=== PATIENT | female | born 1990 ===

== ENCOUNTER 2016-12-07 14:47 | Outpatient (CLI) | payer OTHER ==
[2016-12-07 16:18] VITALS: BP 132/83; PULSE 85; RESP 18; TEMP 98.1
== END 2016-12-07 15:50 | disposition home or self-care (01) ==
LOC: FBPOP 14:47 → MERGE 14:47 → FBPOP 15:50
PROVIDERS: ATTEND Obstetrics & Gynecology
DX: O26.893 Other specified pregnancy related conditions, third trimester (principal); R10.30 Lower abdominal pain, unspecified; Z3A.39 39 weeks gestation of pregnancy
CPT/HCPCS: 59025; 99213

== ENCOUNTER 2016-12-09 04:31 | Inpatient (IN) | payer OTHER ==
[2016-12-09] MEDS ORDERED: METHYLERGONOVINE 0.2 MG/ML 1 ML AMP IM PRN (04:49)
[2016-12-09] MEDS ORDERED: CARBOPROST TROMETHAMINE 250 MCG/ML 1 ML AMP IM PRN (04:49)
[2016-12-09] MEDS ORDERED: OXYTOCIN 10 UNIT/ML 1 ML VIAL IM PRN (04:49)
[2016-12-09] MEDS ORDERED: LIDOCAINE 1% (PF) 10 MG/ML (30 ML SDV) SQ PRN (04:49)
[2016-12-09] MEDS ORDERED: TERBUTALINE 1 MG/ML VIAL SQ PRN (04:49)
[2016-12-09] MEDS: LACTATED RINGERS 1,000 ML IV SCH ×2 (04:56→14:43)
[2016-12-09] MEDS ORDERED: LACTATED RINGERS 1,000 ML IV SCH (05:00)
[2016-12-09 05:05] LABS: Basophils % (A) 0 %; CH 29.3; CHCM 33.5; Eosinophils # (A) 0.2 k/uL (0-0.7); Eosinophils % (A) 2 %; HCT 32.5 % (34.0-46.0); HDW 3.21; HGB 10.8 gm/dL (11.4-16.0); Luc # (Auto) 0.13; Luc % (Auto) 2; Lymphocytes # (A) 2.2 k/uL (1.0-4.8); Lymphocytes % (A) 26 %; MCH 29.1 pg (25.0-35.0); MCHC 33.1 g/dL (31.0-37.0); MCV 87.8 fL (80.0-100.0); Mean Platelet Volume 9.9; Monocytes # (A) 0.5 k/uL (0-1.0); Monocytes % (A) 6 %; Neutrophils # (A) 5.3 k/uL (1.3-7.7); Neutrophils % (A) 64 %; RDW 12.9 % (11.5-15.5); WBC 8.4 k/uL (3.8-10.6); WBC (Perox) 8.71
--- NOTE | 2016-12-09 05:18 | P.HPOB ---
History of Present Illness H&P Date: 12/09/16 Chief Complaint: Labor at 39+ weeks gestation This is a 26-year-old 3 para 2002 woman who presents at 39-3/7 weeks gestation in spontaneous active labor with rupture of membranes. Her is complicated by language barrier. Patient speaks minimal Moroccan. She is accompanied by her who does speak Moroccan although he is not in the room with her. He reports she had spontaneous rupture of membranes prior to presentation of labor and delivery triage. She is complaining of contractions every 2 minutes for several hours. On initial evaluation in labor and delivery triage she is 6 cm dilated and rupture of membranes is confirmed. She is a 3 para 2 with a history of 2 previous uncomplicated vaginal deliveries. Details are not available on the record. Laboratory data reveals blood type B positive, antibody screen negative, rubella immune, VDRL nonreactive, hepatitis B surface antigen negative, group B strep negative, glucose tolerance testing within normal limits. Review of Systems All systems: negative Past Medical History Past Medical History: No Reported History Additional Past Medical History / Comment(s): 2 History of Any Multi-Drug Resistant Organisms: None Reported Past Surgical History: No Surgical Hx Reported Past Psychological History: No Psychological Hx Reported Smoking Status: Never smoker Medications and Allergies Home Medications Medication Instructions Recorded Confirmed Type No Known Home Medications [No 12/09/16 12/09/16 History Known Home Medications] Allergies Allergy/AdvReac Type Severity Reaction Status Date / Time No Known Allergies Allergy Verified 12/09/16 04:49 Exam - Vital Signs Vital signs: Intake and Output 12/08/16 12/08/16 12/09/16 14:59 22:59 06:59 Other: Weight 77.111 kg Patient Weight 12/09/16 06:59 Weight 77.111 kg Per the labor and message and delivery service pricer: Patient is 6 cm dilated, 90% effaced vertex in 0 station. Artificial rupture of membranes is confirmed. heart tones are reassuring by external monitoring she is uri every 1-2 minutes. Results Result Diagrams: 12/09/16 04:50 Abnormal Lab Results - Last 24 Hours (Table) 12/09/16 Range/Units 04:50 RBC 3.70 L (3.80-5.40) m/uL Hgb 10.8 L (11.4-16.0) gm/dL Hct 32.5 L (34.0-46.0) % Assessment and Plan (1) 39 weeks gestation of Status: Acute (2) Spontaneous onset of labor Status: Acute (3) Spontaneous rupture of membranes Status: Acute (4) Language barrier to communication Status: Acute Plan: This is a 26-year-old 3 para 2002 woman at 39+ weeks in advanced active labor. Her is translating for her. He reports she declines analgesia or epidural. She is group B strep negative and Rh+. status is currently reassuring by external monitoring. I anticipate normal spontaneous vaginal delivery.
[2016-12-09] MEDS ORDERED: SIMETHICONE 80 MG CHEWABLE PO PRN (06:27)
[2016-12-09] MEDS ORDERED: ZOLPIDEM 5 MG TAB PO PRN (06:27)
[2016-12-09] MEDS ORDERED: diphenhydrAMINE 50 MG CAP PO PRN (06:27)
[2016-12-09] MEDS ORDERED: diphenhydrAMINE 50 MG/ML 1 ML VIAL IVP PRN ×2 (06:27)
[2016-12-09] MEDS ORDERED: HYDROCORTISONE 2.5% RECTAL CREAM 30 GM TUBE RECTAL PRN (06:27)
[2016-12-09] MEDS ORDERED: LANOLIN CREAM 5 GM TUBE TOPICAL PRN (06:27)
[2016-12-09] MEDS ORDERED: BENZOCAINE/MENTHOL SPRAY 1 GM/SPRAY AEROSOL TOPICAL PRN (06:27)
[2016-12-09] MEDS ORDERED: WITCH HAZEL 1 EACH MED..PAD TOPICAL PRN (06:27)
[2016-12-09] MEDS ORDERED: ACETAMINOPHEN TAB 325 MG TAB PO PRN (06:27)
[2016-12-09] MEDS ORDERED: diphenhydrAMINE 25 MG CAP PO PRN (06:27)
--- NOTE | 2016-12-09 06:27 | P.PROBDLV ---
Vaginal Delivery Note - . Vaginal Delivery Note: Findings: Male infant in the vertex occiput posterior position with a nuchal cord 1. Apgars of 9 at 1 minute and 9 at 5 minutes, weight pending. Apparent right club foot. Intact perineum. Normal-appearing intact three-vessel cord placenta. Delivery summary: This is a 26-year-old 3 para 2001 woman who presented in spontaneous active labor at 39+ weeks gestation. She was 6 cm dilated upon presentation and rapidly progressed to 9 cm dilated. She had spontaneous rupture of membranes prior to admission to the hospital. heart tones were reassuring throughout the first and second stage of labor. She reached complete cervical dilation and began pushing and occiput posterior position was suspected. She had an approximately 50 minutes second stage of labor. With she was repositioned, prepped and draped in the dorsal low lithotomy position. With additional maternal effort the head delivered from the right occiput posterior position. There was a nuchal cord 1 that was delivered through. The rest the infant was rapidly delivered onto the field and the nose and mouth were bulb suctioned. The was placed on the maternal abdomen and the cord was clamped and cut. Apgars were 9 at 1 minute and 9 at 5 minutes. An intact, three-vessel cord placenta was expressed after a 3 minute third stage of labor. The perineum was inspected and no lacerations were noted. The uterus was massaged and was noted to be firm at the level of the umbilicus. Patient received Pitocin following the third stage of labor. Sponge and needle counts were correct. Both mother and infant were doing well post delivery in the room.
[2016-12-09] MEDS ORDERED: OXYTOCIN 30 UNITS/500 ML NS 30 UNIT in SALINE 1 500ML.BAG IV SCH (06:30)
[2016-12-09] MEDS: IBUPROFEN 600 MG TAB PO PRN ×2 (07:23→20:57)
[2016-12-09 07:38] VITALS: BMI 28.3
[2016-12-09 08:05] VITALS: RESP 16
[2016-12-09] MEDS: SENNOSIDES-DOCUSATE SODIUM 1 EACH TAB PO SCH ×2 (08:08→20:57)
[2016-12-10] MEDS: IBUPROFEN 600 MG TAB PO PRN (05:55)
--- NOTE | 2016-12-10 07:05 | P.DS ---
Providers Date of admission: 12/09/16 04:36 Expected date of discharge: 12/10/16 Attending physician: Zainab Bolden Primary care physician: Zainab Bolden [facility] Course: This is a 26-year-old female 3 para 2002 EDC 12/14/2016 at 39-2/7 weeks ' gestation. Patient presented in active spontaneous labor. essentially unremarkable, group B strep cultures negative, blood type B+, rubella status immune. Please see dictated history and physical for details. Patient went on to deliver a liveborn male with scores of 9 and 9 at one and 5 minutes respectively. weighed 2930 g or 6 lbs. 7 oz. Delivery was unremarkable with an estimated blood loss of 100 mL's. No suturing was needed. Please see dictated delivery note for details. She is voiding, ambulating and passing flatus without difficulty. Vital signs are stable and she is afebrile. Fundus is firm and in the midline, symmetric and 18 week size. Breasts are not engorged. Extremities are negative. Lochia is minimal to moderate. infant is doing well, circumcision has been performed. There is a clubfoot noted on the , pediatricians following. Patient is therefore being discharged home this morning in very good condition. She will follow-up with me in the office in 6 weeks. I have reminded her no intercourse, tampons or douching. We have briefly discussed options for contraception and we will discuss this further in the office. She will call with any fevers shakes or chills, foul smelling or copious lochia, with the passage of large blood clots, with any pain not alleviated by [id number] Motrin, or indeed with any concerns. Patient Condition at Discharge: Good Plan - Discharge Summary Discharge Medication List No Known Home Medications [No Known Home Medications] 12/09/16 [History] Follow up Appointment(s)/Referral(s): Zainab Bolden MD [Primary Care Provider] - 6 Weeks Patient Instructions/Handouts: Caring for Your Baby (DC), Bleeding ( DC), Vaginal Delivery (DC) Discharge Disposition: HOME SELF-CARE
[2016-12-10 07:39] VITALS: BP 106/56; PULSE 64; TEMP 98.2
== END 2016-12-10 13:15 | disposition home or self-care (01) | DRG 775 ==
LOC: FBPOP 04:31 → 4FBP 04:36
PROVIDERS: ADMIT Obstetrics & Gynecology; ATTEND Obstetrics & Gynecology
PROC: 10E0XZZ Delivery of Products of Conception, External Approach (ICD-10-PCS; principal; 2016-12-09)
DX: O69.81X0 Labor and delivery complicated by cord around neck, without compression, not applicable or unspecified (principal); Z37.0 Single live birth; Z3A.39 39 weeks gestation of pregnancy
CPT/HCPCS: 59025; 84112; 85025; 88307; 99213

== ENCOUNTER 2016-12-13 15:18 | Emergency (ER) | payer OTHER ==
[2016-12-13] MEDS ORDERED: MORPHINE SULFATE 4 MG/ML SYRINGE IVP STA (16:42)
[2016-12-13] MEDS ORDERED: SODIUM CHLORIDE 0.9% 1,000 ML IV STA ×2 (16:42)
[2016-12-13] MEDS ORDERED: ONDANSETRON 4 MG/2 ML VIAL IVP STA (16:42)
[2016-12-13 17:12] LABS: Basophils % (A) 0 %; CH 28.8; CHCM 32.7; Eosinophils % (A) 1 %; HCT 31.1 % (34.0-46.0); HDW 2.97; HGB 10.3 gm/dL (11.4-16.0); Luc # (Auto) 0.06; Luc % (Auto) 1; Lymphocytes # (A) 0.6 k/uL (1.0-4.8); Lymphocytes % (A) 9 %; MCH 29.4 pg (25.0-35.0); MCHC 33.2 g/dL (31.0-37.0); MCV 88.4 fL (80.0-100.0); Mean Platelet Volume 8.8; Monocytes # (A) 0.2 k/uL (0-1.0); Monocytes % (A) 3 %; Neutrophils # (A) 5.3 k/uL (1.3-7.7); Neutrophils % (A) 86 %; RBC 3.52 m/uL (3.80-5.40); RDW 12.5 % (11.5-15.5); WBC 6.1 k/uL (3.8-10.6); WBC (Perox) 6.39
[2016-12-13 17:18] LABS: Appearance,Urine Cloudy (Clear); Bilirubin,Urine Negative (Negative); Glucose,Urine (UA) Negative (Negative); Ketones,Urine Negative (Negative); Leukocyte Esterase,Urine Large (Negative); Mucus,Urine Few /hpf; Nitrite,Urine Negative (Negative); Particle Count 10588; Protein,Urine 1+ (Negative); RBC,Urine >182 /hpf (0-5); Specific Gravity,Urine 1.029 (1.001-1.035); Squamous Epithelial Cell,Urine 2 /hpf (0-4); UA Billing (MACRO vs. MICRO) MICRO; WBC,Urine 95 /hpf (0-5)
[2016-12-13 17:27] LABS: ALT 73 U/L (9-52); AST 50 U/L (14-36); Alkaline Phosphatase 117 U/L (38-126); Anion Gap 11 mmol/L; Blood Urea Nitrogen 13 mg/dL (7-17); Calcium 8.9 mg/dL (8.4-10.2); Carbon Dioxide 21 mmol/L (22-30); Chloride 107 mmol/L (98-107); Glucose 89 mg/dL (74-99); Magnesium 1.9 mg/dL (1.6-2.3); Non-African American GFR(MDRD) >60 (>60 ml/min/1.73 sqM); Sodium 139 mmol/L (137-145); Total Bilirubin 0.4 mg/dL (0.2-1.3); Total Protein 7.4 g/dL (6.3-8.2)
[2016-12-13 18:00] VITALS: RESP 18
--- NOTE | 2016-12-13 18:11 | ED ---
General Adult HPI - General Chief complaint: Urogenital Stated complaint: Lower Abd Pain Time Seen by Provider: 12/13/16 16:16 Source: patient Mode of arrival: ambulatory Limitations: no limitations - History of Present Illness Initial comments: The patient is a female who presents to ED with a chief complaint of dysuria. Patient also complaining of diffuse abdominal pain, bilateral lower extremity swelling. Patient also notes that she's had a trace headache over the course of the day today. Patient states that the symptoms largely began about 3 days ago. Patient states the symptoms began with a lower pelvic pain. Not associated with any vaginal bleeding or foul-smelling discharge. The patient does note that she did have a vaginal delivery approximately 4 days ago. Reviewing the patient's notes, this was uncomplicated delivery. The patient was discharged home following delivery in good health. Patient states that she's felt warm over the course of the day. Patient is uncertain whether she is having any fevers or chills. Patient has no history of hypertension. Patient's initial blood pressure was noted to be slightly elevated with a systolic of 147. Patient denies any visual changes. - Related Data Previous Rx's Medication Instructions Recorded Cephalexin [Keflex] 500 mg PO TID #30 cap 12/13/16 Allergies Allergy/AdvReac Type Severity Reaction Status Date / Time No Known Allergies Allergy Verified 12/13/16 16:34 Review of Systems ROS Statement: Those systems with pertinent positive or pertinent negative responses have been documented in the HPI. ROS Other: All systems not noted in ROS Statement are negative. Constitutional: Denies: fever, chills Respiratory: Denies: cough, dyspnea, wheezes, hemoptysis, stridor Cardiovascular: Denies: chest pain, palpitations Endocrine: Denies: fatigue Gastrointestinal: Reports: abdominal pain. Denies: nausea, vomiting, diarrhea, constipation Genitourinary: Reports: urgency, dysuria. Denies: frequency, hematuria Musculoskeletal: Denies: back pain Skin: Denies: rash, lesions, change in color Neurological: Reports: headache. Denies: weakness Psychiatric: Denies: anxiety, depression Past Medical History Past Medical History: No Reported History Additional Past Medical History / Comment(s): 2 History of Any Multi-Drug Resistant Organisms: None Reported Past Surgical History: No Surgical Hx Reported Past Anesthesia/Blood Transfusion Reactions: No Reported Reaction Past Psychological History: No Psychological Hx Reported Smoking Status: Never smoker Past Alcohol Use History: None Reported Past Drug Use History: None Reported - Past Family History Father Family Medical History: No Reported History General Exam Limitations: no limitations General appearance: alert, in no apparent distress Head exam: Present: atraumatic, normocephalic Eye exam: Present: normal appearance, PERRL, EOMI Pupils: Present: normal accommodation ENT exam: Present: normal exam, mucous membranes dry Neck exam: Present: normal inspection Respiratory exam: Present: normal lung sounds bilaterally. Absent: respiratory distress, wheezes, rales, rhonchi, stridor, chest wall tenderness Cardiovascular Exam: Present: normal rhythm, tachycardia, normal heart sounds. Absent: systolic murmur, diastolic murmur GI/Abdominal exam: Present: soft, tenderness (mild diffuse tenderness). Absent : distended, guarding, rebound, rigid Extremities exam: Present: pedal edema (2+ of the bilateral lower extremities) Back exam: Present: normal inspection, full ROM Neurological exam: Present: alert, oriented X3 Psychiatric exam: Present: normal affect, normal mood Skin exam: Present: warm, dry, intact Course Vital Signs 12/13/16 12/13/16 12/13/16 16:06 17:58 19:50 Temperature 99 F 100.8 F H 97 F L Pulse Rate 127 H 94 89 Respiratory 20 18 18 Rate Blood Pressure 147/89 113/58 122/67 O2 Sat by Pulse 98 100 97 Oximetry EKG Findings - EKG Comments: EKG Findings:: EKG demonstrates sinus tachycardia with a rate of 100. There are no concerning ST-T changes. The DC and QRS intervals are within normal limits. Medical Decision Making - Medical Decision Making The patient is a 26-year-old female who presents to ED with a chief complaint lower abdominal discomfort. Patient describes dysuria and urgency as well. Patient also describes generalized abdominal pain. Patient also cites swelling of the bilateral lower extremities. Patient complains of headache as well. Initial blood pressure noted to be slightly elevated with systolic 147. Will rule out possibility of preeclampsia. Check CBC, CMP. Check UA. Urine culture. Check chest x-ray. EKG. Provided with morphine and Zofran for pain and nausea control. 7:[address] Bolden, the patient's OBGYN, and extensively discussed patient's case. She states that she does not believe the patient is suffering from preeclampsia due the fact that her blood pressure normalized after receiving IV fluids. Patient was noted to have fever. Patient not tender to a large degree in the suprapubic region. Patient does have slight elevation of liver enzymes. However, no elevation of creatinine. Platelets are within normal limits. UA does demonstrate evidence of possible urinary tract infection. Will treat patient with dose of Rocephin IV piggyback. Rapid influenza were noted to be negative. Patient will be discharged on Keflex 500 mg capsule 3 times a day 7 days. I encouraged the patient to follow up with Dr. Bolden in her office next week. Otherwise, should the patient's symptoms worsen, I have encouraged her to follow up in the ED. I have answered all her questions to her satisfaction. - Lab Data Result diagrams: 12/13/16 16:58 12/13/16 16:58 Lab Results 12/13/16 12/13/16 12/13/16 Range/Units 16:58 16:58 16:58 WBC 6.1 (3.8-10.6) k/uL RBC 3.52 L (3.80-5.40) m/uL Hgb 10.3 L (11.4-16.0) gm/dL Hct 31.1 L (34.0-46.0) % MCV 88.4 (80.0-100.0) fL MCH 29.4 (25.0-35.0) pg MCHC 33.2 (31.0-37.0) g/dL RDW 12.5 (11.5-15.5) % Plt Count 200 (150-450) k/uL Neutrophils % 86 % Lymphocytes % 9 % Monocytes % 3 % Eosinophils % 1 % Basophils % 0 % Neutrophils # 5.3 (1.3-7.7) k/uL Lymphocytes # 0.6 L (1.0-4.8) k/uL Monocytes # 0.2 (0-1.0) k/uL Eosinophils # 0.0 (0-0.7) k/uL Basophils # 0.0 (0-0.2) k/uL Sodium 139 (137-145) mmol/L Potassium 4.0 (3.5-5.1) mmol/L Chloride 107 (98-107) mmol/L Carbon Dioxide 21 L (22-30) mmol/L Anion Gap 11 mmol/L BUN 13 (7-17) mg/dL Creatinine 0.40 L (0.52-1.04) mg/dL Est GFR (MDRD) Af Amer >60 (>60 ml/min/1.73 sqM) Est GFR (MDRD) Non-Af >60 (>60 ml/min/1.73 sqM) Glucose 89 (74-99) mg/dL Plasma Lactic Acid [place] 1.1 (0.7-2.0) mmol/L Calcium 8.9 (8.4-10.2) mg/dL Magnesium 1.9 (1.6-2.3) mg/dL Total Bilirubin 0.4 (0.2-1.3) mg/dL AST 50 H (14-36) U/L ALT 73 H (9-52) U/L Alkaline Phosphatase 117 (38-126) U/L NT-Pro-B Natriuret Pep pg/mL Total Protein 7.4 (6.3-8.2) g/dL Albumin 3.5 (3.5-5.0) g/dL Urine Color Urine Appearance (Clear) Urine pH (5.0-8.0) Ur Specific [place] (1.001-1.035) Urine Protein (Negative) Urine Glucose (UA) (Negative) Urine Ketones (Negative) Urine Blood (Negative) Urine Nitrate (Negative) Urine Bilirubin (Negative) Urine Urobilinogen (<2.0) mg/dL Ur Leukocyte Esterase (Negative) Urine RBC (0-5) /hpf Urine WBC (0-5) /hpf Ur Squamous Epith Cells (0-4) /hpf Urine Mucus (None) /hpf Influenza Type A RNA (Not Detectd) Influenza Type B (PCR) (Not Detectd) 12/13/16 12/13/16 12/13/16 Range/Units 16:58 16:58 18:40 WBC (3.8-10.6) k/uL RBC (3.80-5.40) m/uL Hgb (11.4-16.0) gm/dL Hct (34.0-46.0) % MCV (80.0-100.0) fL MCH (25.0-35.0) pg MCHC (31.0-37.0) g/dL RDW (11.5-15.5) % Plt Count (150-450) k/uL Neutrophils % % Lymphocytes % % Monocytes % % Eosinophils % % Basophils % % Neutrophils # (1.3-7.7) k/uL Lymphocytes # (1.0-4.8) k/uL Monocytes # (0-1.0) k/uL Eosinophils # (0-0.7) k/uL Basophils # (0-0.2) k/uL Sodium (137-145) mmol/L Potassium (3.5-5.1) mmol/L Chloride (98-107) mmol/L Carbon Dioxide (22-30) mmol/L Anion Gap mmol/L BUN (7-17) mg/dL Creatinine (0.52-1.04) mg/dL Est GFR (MDRD) Af Amer (>60 ml/min/1.73 sqM) Est GFR (MDRD) Non-Af (>60 ml/min/1.73 sqM) Glucose (74-99) mg/dL Plasma Lactic Acid [place] (0.7-2.0) mmol/L Calcium (8.4-10.2) mg/dL Magnesium (1.6-2.3) mg/dL Total Bilirubin (0.2-1.3) mg/dL AST (14-36) U/L ALT (9-52) U/L Alkaline Phosphatase (38-126) U/L NT-Pro-B Natriuret Pep 277 pg/mL Total Protein (6.3-8.2) g/dL Albumin (3.5-5.0) g/dL Urine Color Yellow Urine Appearance Cloudy H (Clear) Urine pH 6.0 (5.0-8.0) Ur Specific [place] 1.029 (1.001-1.035) Urine Protein 1+ H (Negative) Urine Glucose (UA) Negative (Negative) Urine Ketones Negative (Negative) Urine Blood Large H (Negative) Urine Nitrate Negative (Negative) Urine Bilirubin Negative (Negative) Urine Urobilinogen 2.0 (<2.0) mg/dL Ur Leukocyte Esterase Large H (Negative) Urine RBC >182 H (0-5) /hpf Urine WBC 95 H (0-5) /hpf Ur Squamous Epith Cells 2 (0-4) /hpf Urine Mucus Few H (None) /hpf Influenza Type A RNA Not Detected (Not Detectd) Influenza Type B (PCR) Not Detected (Not Detectd) Disposition Clinical Impression: Acute UTI, Pedal edema Disposition: HOME SELF-CARE Condition: Good Instructions: Urinary Tract Infection in Women (ED) Additional Instructions: Please keep your legs elevated when you are at home. You can also purchase compression socks (at [facility], [facility], or another pharmacy) to help treat the swelling in your legs. Prescriptions: Cephalexin [Keflex] 500 mg PO TID #30 cap Referrals: None,Stated [Primary Care Provider] - 1-2 days Zainab Bolden MD [STAFF PHYSICIAN] - 12/13/16 7:34 pm (Dr. Bolden is your OBGYN. Please call her office to schedule a follow-up appointment. She is familiar with your case) Time of Disposition: 19:35
--- NOTE | 2016-12-13 18:49 | XR ---
EXAMINATION TYPE: XR chest 2V DATE OF EXAM: 12/13/2016 6:35 PM COMPARISON: NONE INDICATION: Pain TECHNIQUE: Frontal and lateral views of the chest are obtained. FINDINGS: The heart size is normal. The pulmonary vasculature is normal. The lungs are clear. IMPRESSION: 1. No acute pulmonary process.
[2016-12-13 19:51] VITALS: BP 122/67; PULSE 89; TEMP 97
== END 2016-12-13 19:51 | disposition home or self-care (01) ==
LOC: EC 15:18
DX: N39.0 Urinary tract infection, site not specified (principal); R60.9 Edema, unspecified; R50.9 Fever, unspecified; R94.5 Abnormal results of liver function studies
CPT/HCPCS: 99284; 96365; 96375 ×2; 96361 ×2; 36415; 93005; 83880; 80053; 83605; 83735; 85025; 81001; 87040; 87086; 87502; 71020; J2270; J2405; J0696

== ENCOUNTER 2018-02-20 20:05 | Emergency (ER) | payer OTHER ==
[2018-02-20] MEDS ORDERED: ACETAMINOPHEN TAB 500 MG TAB PO STA (21:44)
[2018-02-20] MEDS ORDERED: IBUPROFEN 600 MG TAB PO STA (21:44)
[2018-02-20 22:01] VITALS: BP 130/72; PULSE 116; RESP 16; TEMP 101.3
--- NOTE | 2018-02-20 22:04 | ED ---
Fever HPI - General Chief Complaint: Fever Stated Complaint: Fever Time Seen by Provider: 02/20/18 21:30 Source: patient, RN notes reviewed Mode of arrival: ambulatory Limitations: language barrier - History of Present Illness Initial Comments: This is a 27-year-old female who presented to the emergency department with chief complaint of fever. Patient does not speak Cymro so her partner at bedside translates for her. He states that patient developed a fever at 11 AM today. Patient complains of sore throat and headache as well as nasal congestion. Does complain of a mild cough. Denies abdominal pain, nausea or vomiting, difficulty breathing, urinary symptoms. - Related Data Previous Rx's Medication Instructions Recorded Metoclopramide [Reglan] 10 mg PO Q6HR PRN #20 tab 05/03/16 Cephalexin [Keflex] 500 mg PO TID #30 cap 12/13/16 Allergies Allergy/AdvReac Type Severity Reaction Status Date / Time No Known Allergies Allergy Verified 02/20/18 20:31 Review of Systems ROS Statement: Those systems with pertinent positive or pertinent negative responses have been documented in the HPI. ROS Other: All systems not noted in ROS Statement are negative. Past Medical History Past Medical History: No Reported History Additional Past Medical History / Comment(s): 2 History of Any Multi-Drug Resistant Organisms: None Reported Past Surgical History: No Surgical Hx Reported Past Anesthesia/Blood Transfusion Reactions: No Reported Reaction Past Psychological History: No Psychological Hx Reported Smoking Status: Never smoker Past Alcohol Use History: None Reported Past Drug Use History: None Reported - Past Family History Father Family Medical History: No Reported History General Exam - General Exam Comments Initial Comments: General: Awake and alert, well-developed; in no apparent distress. Patient does feel warm to the touch. HEENT: Head atraumatic, normocephalic. Pupils are equal, round and reactive to light. Extraocular movements intact. Oropharynx moist without erythema or exudate. Neck: Supple. Normal ROM. No cervical lymphadenopathy. Cardiovascular: Regular rate and rhythm. No murmurs, rubs or gallops. Chest symmetrical. Respiratory: Lungs clear to auscultation bilaterally. No wheezes, rales or rhonchi. Normal respiratory effort with no use of accessory muscles. Musculoskeletal: Normal ROM, no tenderness bilateral upper and lower extremities. Neurological: Alert and oriented x3. CN II-XII grossly intact. No focal neuro deficits. Limitations: language barrier Course Vital Signs 02/20/18 20:28 Temperature 102.3 F H Pulse Rate 125 H Respiratory 22 Rate Blood Pressure 121/78 Medical Decision Making - Medical Decision Making This is a 27-year-old female who presented to the emergency department with chief complaint of fever since 11 AM this morning. Patient was given Tylenol and Motrin while in the emergency department. Influenza was negative. I discussed with the patient's partner at bedside that I recommend a chest x-ray as well as further testing to identify source of fever. However, they refused stating that they would like the fever treated and to be discharged home. He states that she will follow up with her primary care provider on Thursday. Patient is in no acute distress and will be discharged home. - Lab Data Lab Results 02/20/18 Range/Units 20:47 Influenza Type A RNA Not Detected (Not Detectd) Influenza Type B (PCR) Not Detected (Not Detectd) Disposition Clinical Impression: Fever Disposition: HOME SELF-CARE Condition: Fair Instructions: Fever in Adults (ED) Additional Instructions: Please treat fevers by alternating Motrin and Tylenol. Please encourage fluid intake. Please follow up with primary care provider within 1-2 days. Return to emergency department if symptoms should worsen or any concerns arise. Referrals: None,Stated [Primary Care Provider] - 1-2 days Time of Disposition: 22:04
== END 2018-02-20 22:12 | disposition home or self-care (01) ==
LOC: EC 20:05
DX: R50.9 Fever, unspecified (principal); R51 Headache; R05 Cough; R09.81 Nasal congestion
CPT/HCPCS: 87502; 99283

== ENCOUNTER 2021-04-27 10:11 | Emergency (ER) | payer OTHER ==
[2021-04-27 10:34] VITALS: RESP 18
--- NOTE | 2021-04-27 10:59 | ED ---
Extremity Problem HPI - General Chief complaint: Extremity Problem,Nontraumatic Stated complaint: 20wks preg/leg pain/Mother baby wanted er to see Time Seen by Provider: 04/27/21 10:40 Source: family Mode of arrival: ambulatory Limitations: language barrier - History of Present Illness Initial comments: 30-year-old female, 20 week , presented to emergency department with a chief complaint of right leg pain. Patient does not speak condition and translating. He states the patient was pain in her right lower extremity once she woke up today. He states the pain initially started in her right knee and progressed distally to her foot. Patient later developed the pain that migrated proximally towards the right hip. states the patient stays home most of the time in he believes that she is not exercising enough. Patient denies any chest pain, shortness of breath, fevers, chills, abdominal pain, nausea, vomiting, diarrhea, vaginal discharge or bleeding or any urinary symptoms. - Related Data Previous Rx's Medication Instructions Recorded Metoclopramide [Reglan] 10 mg PO Q6HR PRN #20 tab 05/03/16 Cephalexin [Keflex] 500 mg PO TID #30 cap 12/13/16 Allergies Allergy/AdvReac Type Severity Reaction Status Date / Time No Known Allergies Allergy Verified 04/27/21 10:34 Review of Systems ROS Statement: Those systems with pertinent positive or pertinent negative responses have been documented in the HPI. ROS Other: All systems not noted in ROS Statement are negative. Past Medical History Past Medical History: No Reported History Additional Past Medical History / Comment(s): 2 History of Any Multi-Drug Resistant Organisms: None Reported Past Surgical History: No Surgical Hx Reported Past Anesthesia/Blood Transfusion Reactions: No Reported Reaction Past Psychological History: No Psychological Hx Reported Smoking Status: Never smoker Past Alcohol Use History: None Reported Past Drug Use History: None Reported - Past Family History Father Family Medical History: No Reported History General Exam Limitations: language barrier General appearance: alert, in no apparent distress Head exam: Present: atraumatic, normocephalic, normal inspection Eye exam: Present: normal appearance, PERRL, EOMI Pupils: Present: normal accommodation ENT exam: Present: normal exam, normal oropharynx, mucous membranes moist, TM's normal bilaterally, normal external ear exam Neck exam: Present: normal inspection, full ROM. Absent: tenderness Respiratory exam: Present: normal lung sounds bilaterally. Absent: respiratory distress, wheezes, rales, rhonchi, stridor Cardiovascular Exam: Present: regular rate, normal rhythm, normal heart sounds. Absent: systolic murmur, diastolic murmur Extremities exam: Present: normal inspection, full ROM, tenderness, normal capillary refill, calf tenderness (Right calf tenderness.), other (Palpable DP and PT bilaterally.). Absent: pedal edema, joint swelling Back exam: Present: normal inspection, full ROM. Absent: tenderness, CVA tenderness (R), CVA tenderness (L) Neurological exam: Present: alert, oriented X3 Psychiatric exam: Present: normal affect, normal mood Skin exam: Present: warm, dry, intact, normal color Course Vital Signs 04/27/21 10:31 Temperature 98.1 F Pulse Rate 82 Respiratory 18 Rate Blood Pressure 116/75 O2 Sat by Pulse 97 Oximetry Medical Decision Making - Medical Decision Making 30-year-old female, 20 week , presented to emergency department with a chief complaint of right leg pain. Tenderness in the right side. No significant swelling compared to the left. Otherwise neurovascularly intact. But a signs are within normal limits. Ultrasound is negative for DVT. Return parameters discussed with patient and were understanding and agreeable. Case discussed with Dr. Wong Clinical Impression: Right leg pain Disposition: HOME SELF-CARE Condition: Stable Instructions (If sedation given, give patient instructions): Leg Pain (ED) Additional Instructions: Please return to the Emergency Department if symptoms worsen or any other concerns. Is patient prescribed a controlled substance at d/c from ED?: No Referrals: Nonstaff,Physician [Primary Care Provider] - 1-2 days Time of Disposition: 12:02
--- NOTE | 2021-04-27 11:48 | US ---
EXAMINATION TYPE: US venous doppler duplex LE RT DATE OF EXAM: 04/27/2021 11:41 AM COMPARISON: NONE CLINICAL HISTORY: 16 week preg, calf pain. SIDE PERFORMED: Right TECHNIQUE: The lower extremity deep venous system is examined utilizing real time linear array sonog augstin with graded compression, doppler sonography and color-flow sonography. VESSELS IMAGED: Common Femoral Vein Deep Femoral Vein Greater Saphenous Vein * Femoral Vein Popliteal Vein Small Saphenous Vein * Proximal Calf Veins (* superficial vessels) The deep venous system of the right lower extremity is patent and compressible with augmentable flow throughout there is no evidence of DVT. Right Leg: Negative for DVT IMPRESSION: Grayscale, color doppler, spectral doppler imaging performed of the deep veins of the lo wer extremities. There is normal flow, compressibility, vascular waveforms. No evidence of right lo wer extremity DVT.
[2021-04-27 12:24] VITALS: BP 118/65; PULSE 80; TEMP 97.9
== END 2021-04-27 12:24 | disposition home or self-care (01) ==
LOC: EC 10:11
DX: O26.892 Other specified pregnancy related conditions, second trimester (principal); M79.661 Pain in right lower leg; M25.561 Pain in right knee; M25.551 Pain in right hip; Z3A.20 20 weeks gestation of pregnancy
CPT/HCPCS: 99283

== ENCOUNTER 2022-08-25 12:10 | Emergency (ER) | payer OTHER ==
[2022-08-25 12:16] VITALS: BP 144/87; RESP 16; TEMP 98.2
[2022-08-25] MEDS ORDERED: IPRATROPIUM-ALBUTEROL 3 ML NEB INHALATION STA (12:54)
--- NOTE | 2022-08-25 13:22 | XR ---
EXAMINATION TYPE: XR chest 2V DATE OF EXAM: 08/25/2022 COMPARISON: Chest x-ray December 13, 2016 HISTORY: Cough. TECHNIQUE: Frontal and lateral views of the chest are obtained. FINDINGS: There is no suspicious new focal air space opacity, pleural effusion, or pneumothorax seen . The cardiac silhouette size is stable and within normal limits. The osseous structures are intac t. IMPRESSION: No acute pulmonary process. No significant change from prior.
[2022-08-25 13:33] VITALS: PULSE 69
--- NOTE | 2022-08-25 13:44 | ED ---
URI HPI - General Chief Complaint: Upper Respiratory Infection Stated Complaint: Cough Time Seen by Provider: 08/25/22 12:19 Source: patient, RN notes reviewed Mode of arrival: ambulatory Limitations: no limitations - History of Present Illness Initial Comments: 32-year-old female presents emergency Department with chief complaint of cough congestion. Patient has been sick for last 4-5 days. Patient had increase in cough, wheezing shortness breath. Patient denies any history of asthma no history of COPD nonsmoker. Patient is in no sick contacts patient has mild nasal congestion, cough is worse and laying down. - Related Data Previous Rx's Medication Instructions Recorded Metoclopramide [Reglan] 10 mg PO Q6HR PRN #20 tab 05/03/16 Cephalexin [Keflex] 500 mg PO TID #30 cap 12/13/16 Albuterol Sulfate [Proair Hfa] 1 - 2 puff INHALATION Q4HR PRN 08/25/22 #8.5 gm Azithromycin [Zithromax Z Pack] 0 tab PO DIRECTED #6 tab 08/25/22 predniSONE 50 mg PO DAILY #5 tab 08/25/22 Allergies Allergy/AdvReac Type Severity Reaction Status Date / Time No Known Allergies Allergy Verified 04/27/21 10:34 Review of Systems ROS Statement: Those systems with pertinent positive or pertinent negative responses have been documented in the HPI. ROS Other: All systems not noted in ROS Statement are negative. Past Medical History Past Medical History: No Reported History Additional Past Medical History / Comment(s): 2 History of Any Multi-Drug Resistant Organisms: None Reported Past Surgical History: No Surgical Hx Reported Past Anesthesia/Blood Transfusion Reactions: No Reported Reaction Past Psychological History: No Psychological Hx Reported Smoking Status: Never smoker Past Alcohol Use History: None Reported Past Drug Use History: None Reported - Past Family History Father Family Medical History: No Reported History General Exam Limitations: no limitations General appearance: alert, in no apparent distress Head exam: Present: atraumatic, normocephalic, normal inspection Eye exam: Present: normal appearance, PERRL, EOMI. Absent: scleral icterus, conjunctival injection, periorbital swelling ENT exam: Present: normal exam, normal oropharynx, mucous membranes moist Neck exam: Present: normal inspection, full ROM. Absent: tenderness, meningismus, lymphadenopathy Respiratory exam: Present: wheezes. Absent: normal lung sounds bilaterally, respiratory distress, rales, rhonchi, stridor Cardiovascular Exam: Present: regular rate, normal rhythm, normal heart sounds. Absent: systolic murmur, diastolic murmur, rubs, gallop, clicks Course Vital Signs 08/25/22 08/25/22 12:11 13:25 Temperature 98.2 F Pulse Rate 67 69 Respiratory 16 Rate Blood Pressure 144/87 O2 Sat by Pulse 98 Oximetry Medical Decision Making - Medical Decision Making 32-year-old presented for cough congestion patient moderately wheezy was given 2 breathing treatments, x-rays unremarkable. COVID-19 is negative. Patient we treated for acute bronchitis with bronchospasm. Patient's treatment in the rash, steroids, inhaler. - Lab Data Lab Results 08/25/22 Range/Units 12:32 Coronavirus (PCR) Not Detected (Not Detectd) Disposition Clinical Impression: Acute bronchitis with bronchospasm Disposition: HOME SELF-CARE Condition: Stable Instructions (If sedation given, give patient instructions): Acute Bronchitis (ED) Additional Instructions: Please return to the Emergency Department if symptoms worsen or any other concerns. Prescriptions: predniSONE 50 mg PO DAILY #5 tab Albuterol Sulfate [Proair Hfa] 1 - 2 puff INHALATION Q4HR PRN #8.5 gm PRN Reason: difficulty in breathing Azithromycin [Zithromax Z Pack] 0 tab PO DIRECTED #6 tab Is patient prescribed a controlled substance at d/c from ED?: No Referrals: David Starkey MD [Primary Care Provider] - 1-2 days Time of Disposition: 13:44
== END 2022-08-25 14:10 | disposition home or self-care (01) ==
LOC: EC 12:10
DX: J20.9 Acute bronchitis, unspecified (principal); Z20.822 Contact with and (suspected) exposure to COVID-19
CPT/HCPCS: 71046; 87635; 94640; 99285

== ENCOUNTER 2022-09-12 19:45 | Emergency (ER) | payer OTHER ==
[2022-09-12 19:52] VITALS: BP 141/76; RESP 18; TEMP 98.1
--- NOTE | 2022-09-12 21:31 | XR ---
EXAMINATION TYPE: XR chest 2V DATE OF EXAM: 09/12/2022 COMPARISON: 08/25/2022 HISTORY: Cough TECHNIQUE: 2 views FINDINGS: Heart and mediastinum are normal. Lungs are clear. Diaphragm is normal. Bony thorax is inta ct. IMPRESSION: Normal chest. No change.
[2022-09-12] MEDS ORDERED: DEXAMETHASONE SOD PHOSPHATE 10 MG/ML 1 ML VIAL IM STA (22:00)
[2022-09-12] MEDS ORDERED: IPRATROPIUM-ALBUTEROL 3 ML NEB INHALATION STA (22:00)
--- NOTE | 2022-09-12 22:05 | ED ---
General Adult HPI - General Chief complaint: Upper Respiratory Infection Stated complaint: cough Time Seen by Provider: 09/12/22 21:49 Source: patient, family (), RN notes reviewed, old records reviewed Mode of arrival: ambulatory Limitations: language barrier - History of Present Illness Initial comments: Patient presents to the emergency room with with complaints of cough for 2 weeks. Patient was seen in emergency at that time and had x-rays done and was put on prednisone, Z-Nabor and albuterol. States she has not been using the alb uterol. She denies any fevers, no nausea vomiting diarrhea or chest pain. No medical history. Nonsmoker. states that he was sick last week and has recovered, she has not. He states they were tested for coronavirus and negative. -: week(s) (2) Severity scale (1-10): 0 Associated Symptoms: denies other symptoms Treatments Prior to Arrival: none - Related Data Previous Rx's Medication Instructions Recorded Metoclopramide [Reglan] 10 mg PO Q6HR PRN #20 tab 05/03/16 Cephalexin [Keflex] 500 mg PO TID #30 cap 12/13/16 Albuterol Nebulized [Ventolin 2.5 mg INHALATION Q4H PRN #75 ml 08/25/22 Nebulized] Albuterol Sulfate [Proair Hfa] 1 - 2 puff INHALATION Q4HR PRN 08/25/22 #8.5 gm Azithromycin [Zithromax Z Pack] 0 tab PO DIRECTED #6 tab 08/25/22 predniSONE 50 mg PO DAILY #5 tab 08/25/22 Allergies Allergy/AdvReac Type Severity Reaction Status Date / Time No Known Allergies Allergy Verified 09/12/22 19:52 Review of Systems ROS Statement: Those systems with pertinent positive or pertinent negative responses have been documented in the HPI. ROS Other: All systems not noted in ROS Statement are negative. Past Medical History Past Medical History: No Reported History Additional Past Medical History / Comment(s): 2 History of Any Multi-Drug Resistant Organisms: None Reported Past Surgical History: No Surgical Hx Reported Past Anesthesia/Blood Transfusion Reactions: No Reported Reaction Past Psychological History: No Psychological Hx Reported Smoking Status: Never smoker Past Alcohol Use History: None Reported Past Drug Use History: None Reported - Past Family History Father Family Medical History: No Reported History General Exam Limitations: language barrier General appearance: alert, in no apparent distress Head exam: Present: atraumatic Eye exam: Present: normal appearance ENT exam: Present: normal exam, mucous membranes moist Neck exam: Absent: meningismus Respiratory exam: Present: wheezes (Inspiratory and expiratory wheezes bilaterally). Absent: respiratory distress, accessory muscle use Cardiovascular Exam: Present: regular rate Extremities exam: Present: full ROM, normal capillary refill. Absent: pedal edema, calf tenderness Neurological exam: Present: alert Psychiatric exam: Present: normal affect, normal mood Skin exam: Absent: warm, dry, cyanosis, diaphoretic, pallor Course Vital Signs 09/12/22 09/12/22 09/12/22 19:50 22:21 22:27 Temperature 98.1 F Pulse Rate 89 89 88 Respiratory 18 Rate Blood Pressure 141/76 O2 Sat by Pulse 96 Oximetry Medical Decision Making - Medical Decision Making patient presents with 2 weeks of dry cough. No fevers, no chest pain or difficulty breathing. Denies nausea vomiting or diarrhea. Was seen in the emergency room for same symptoms 2 weeks ago and given a Z-Nabor, prednisone and albuterol. She is not using the albuterol. On exam patient has inspiratory and expiratory wheezes, satting 96% on room air. Heart rate of 89. Afebrile. patient is a nonsmoker with no history of asthma. patient was given a shot of Decadron and albuterol treatment. hemoglobin and hematocrit are stable. No evidence of leukocytosis. Electrolytes are unremarkable. D-dimer is negative. Chest x-ray is clear. This is likely viral bronchitis. Patient has been treated with Z-Nabor on August 25 without relief. She was given a shot of Decadron in the ER today. She was directed to fill the prescription for albuterol at last visit and follow up with her primary care doctor. - Lab Data Result diagrams: 09/12/22 22:32 09/12/22 22:32 Lab Results 09/12/22 09/12/22 09/12/22 Range/Units 22:32 22:32 22:32 WBC 8.7 (3.8-10.6) k/uL RBC 4.15 (3.80-5.40) m/uL Hgb 12.5 (11.4-16.0) gm/dL Hct 37.4 (34.0-46.0) % MCV 90.2 (80.0-100.0) fL MCH 30.2 (25.0-35.0) pg MCHC 33.5 (31.0-37.0) g/dL RDW 12.9 (11.5-15.5) % Plt Count 247 (150-450) k/uL MPV 10.0 Neutrophils % 64 % Lymphocytes % 26 % Monocytes % 5 % Eosinophils % 2 % Basophils % 1 % Neutrophils # 5.6 (1.3-7.7) k/uL Lymphocytes # 2.2 (1.0-4.8) k/uL Monocytes # 0.5 (0-1.0) k/uL Eosinophils # 0.2 (0-0.7) k/uL Basophils # 0.1 (0-0.2) k/uL D-Dimer 0.22 (<0.60) mg/L FEU Sodium 138 (137-145) mmol/L Potassium 3.7 (3.5-5.1) mmol/L Chloride 105 (98-107) mmol/L Carbon Dioxide 21 L (22-30) mmol/L Anion Gap 12 mmol/L BUN 14 (7-17) mg/dL Creatinine 0.57 (0.52-1.04) mg/dL Est GFR (CKD-EPI)AfAm >90 (>60 ml/min/1.73 sqM) Est GFR (CKD-EPI)NonAf >90 (>60 ml/min/1.73 sqM) Glucose 97 (74-99) mg/dL Calcium 9.8 (8.4-10.2) mg/dL Disposition Clinical Impression: Bronchitis Disposition: HOME SELF-CARE Condition: Good Instructions (If sedation given, give patient instructions): Upper Respiratory Infection (ED) Additional Instructions: Use albuterol inhaler 1-2 puffs every 4-6 hours as needed for wheezing or cough. Follow-up with your primary care doctor next week. Return to the emergency room if any new or concerning symptoms including chest pain or worsening difficulty breathing Is patient prescribed a controlled substance at d/c from ED?: No Referrals: David Starkey MD [Primary Care Provider] - 1-2 days Time of Disposition: 23:27
[2022-09-12 22:28] VITALS: PULSE 88
[2022-09-12 22:58] LABS: Basophils # (A) 0.1 k/uL (0-0.2); Basophils % (A) 1 %; Eosinophils # (A) 0.2 k/uL (0-0.7); Eosinophils % (A) 2 %; HCT 37.4 % (34.0-46.0); HGB 12.5 gm/dL (11.4-16.0); Lymphocytes # (A) 2.2 k/uL (1.0-4.8); Lymphocytes % (A) 26 %; MCH 30.2 pg (25.0-35.0); MCHC 33.5 g/dL (31.0-37.0); MCV 90.2 fL (80.0-100.0); Monocytes # (A) 0.5 k/uL (0-1.0); Monocytes % (A) 5 %; Neutrophils # (A) 5.6 k/uL (1.3-7.7); Neutrophils % (A) 64 %; Platelet Count 247 k/uL (150-450); RBC 4.15 m/uL (3.80-5.40); RDW 12.9 % (11.5-15.5); WBC 8.7 k/uL (3.8-10.6)
[2022-09-12 23:12] LABS: African American GFR (CKD) >90 (>60 ml/min/1.73 sqM); Anion Gap 12 mmol/L; Blood Urea Nitrogen 14 mg/dL (7-17); Calcium 9.8 mg/dL (8.4-10.2); Carbon Dioxide 21 mmol/L (22-30); Chloride 105 mmol/L (98-107); Glucose 97 mg/dL (74-99); Non-African American GFR(CKD) >90 (>60 ml/min/1.73 sqM); Potassium 3.7 mmol/L (3.5-5.1); Sodium 138 mmol/L (137-145)
== END 2022-09-12 23:46 | disposition home or self-care (01) ==
LOC: EC 19:45
DX: J40 Bronchitis, not specified as acute or chronic (principal)
CPT/HCPCS: 36415; 94640; 85379; 80048; 85025; 71046; 99283; 96372; J1100

== ENCOUNTER → 2024-03-28 | Outpatient (CLI) | payer OTHER ==
[2024-03-28 17:35] LABS: Basophils # (A) 0.02 X 10*3/uL (0.00-0.10); Basophils % (A) 0.3 %; Eosinophils # (A) 0.22 X 10*3/uL (0.04-0.35); Eosinophils % (A) 3.5 %; HCT 39.8 % (37.2-46.3); HGB 12.9 g/dL (12.0-15.0); Lymphocytes # (A) 1.55 X 10*3/uL (0.90-5.00); MCH 30.2 pg (27.0-32.0); MCHC 32.4 g/dL (32.0-37.0); MCV 93.2 FL (80.0-97.0); Mean Platelet Volume 12.1 FL (9.5-12.2); Monocytes # (A) 0.54 X 10*3/uL (0.20-1.00); Monocytes % (A) 8.7 %; NRBC Per 100 WBC 0 X 10*3/uL (0.00-0.01); Neutrophils # (A) 3.86 X 10*3/uL (1.80-7.70); Neutrophils % (A) 62.2 %; Platelet Count 232 X 10*3/uL (140-440); RBC 4.27 X 10*6/uL (4.10-5.20); RDW 12.1 % (11.5-14.5); WBC 6.21 X 10*3/uL (4.50-10.00)
[2024-03-28 17:49] LABS: ALT 44 U/L (8-44); AST 29 U/L (13-35); Albumin 4.5 g/dL (3.8-4.9); Albumin/Globulin Ratio 1.41 Ratio (1.60-3.17); Alkaline Phosphatase 67 U/L (41-126); Blood Urea Nitrogen 10.7 mg/dL (9.0-27.0); Calcium 9.8 mg/dL (8.7-10.3); Carbon Dioxide 23.1 mmol/L (21.6-31.8); Chloride 103 mmol/L (96-109); Chol/HDL Ratio 2.67 Ratio; Globulin 3.2 g/dL (1.6-3.3); Glucose 103 mg/dL (70-110); LDL Cholesterol,Calculated 108.6 mg/dL (0.0-131.0); Potassium 4.7 mmol/L (3.5-5.5); Sodium 138 mmol/L (135-145); Total Bilirubin 0.3 mg/dL (0.3-1.2); Total Protein 7.7 g/dL (6.2-8.2); VLDL Calculation 13.36 mg/dL (5.00-40.00)
== END | disposition home or self-care (01) ==
LOC: LABWHC1 12:09
PROVIDERS: ATTEND Family Medicine
DX: Z00.00 Encounter for general adult medical examination without abnormal findings (principal); G44.209 Tension-type headache, unspecified, not intractable; E55.9 Vitamin D deficiency, unspecified
CPT/HCPCS: 36415; 80053; 80061; 82306; 84443; 85025

== ENCOUNTER → 2024-07-06 | Outpatient (CLI) | payer OTHER | END | disposition home or self-care (01) | LOC: LABWHC1 12:40 | PROVIDERS: ATTEND Family Medicine | DX: E03.9 Hypothyroidism, unspecified (principal) | CPT/HCPCS: 36415; 84443; 86376; 86800 ==